=== PATIENT | male | born 1975 | race African-American/Black ===

== ENCOUNTER 2016-06-11 12:46 | Emergency (ER) | payer OTHER ==
[2016-06-11 13:34] LABS: BASOPHIL 0.3 % (0-2); EOSINOPHIL 1.9 % (0-5); HCT 46.5 % (42.0-52.0); HGB 16.1 g/dl (13.2-18.0); LYMPHOCYTE 23.4 % (15-48); MCH 31.6 pg (25.0-31.0); MCHC 34.6 g/dL (32.0-36.0); MCV 91.2 fL (78.0-100.0); MONOCYTE 8.3 % (0-12); NEUTROPHIL 66.1 % (41-80); PLT 254 K/uL (150-400); RDW 13.1 % (11.5-14.0); WBC 7.4 K/uL (4.0-10.5)
[2016-06-11 13:44] LABS: ALCOHOL (ETOH) MEDICAL NONE DETECTED; BILIRUBIN - TOTAL 0.6 mg/dL (0.1-1.0); GLOBULIN (CALCULATION) 2.4 g/dL (2.2-4.2); POTASSIUM 3.2 mmol/L (3.5-5.1); SALICYLATE < 6 ug/mL (0-300); TOTAL PROTEIN 7.4 g/dL (6.4-8.3)
[2016-06-11 13:57] LABS: ACETAMINOPHEN (TYLENOL) < 5.0 ug/mL (10.0-30.0)
[2016-06-11 14:13] LABS: BILIRUBIN NEGATIVE (NEGATIVE); BLOOD NEGATIVE Ery/uL (NEGATIVE); CLARITY CLEAR (CLEAR); COLOR YELLOW (YELLOW); GLUCOSE (U) NORMAL (NORMAL); KETONE (U) NEGATIVE (NEGATIVE); LEUKOCYTES NEGATIVE Leu/uL (NEGATIVE); NITRITE NEGATIVE (NEGATIVE); PROTEIN NEGATIVE (NEGATIVE); UROBILINOGEN 0.2 mg/dL (0.2-1.0)
[2016-06-11 14:31] LABS: AMPHETAMINES NEGATIVE (NEGATIVE); BARBITURATES NEGATIVE (NEGATIVE); BENZODIAZEPINES NEGATIVE (NEGATIVE); COCAINE NEGATIVE (NEGATIVE); MARIJUANA (THC) NEGATIVE (NEGATIVE); METHADONE NEGATIVE (NEGATIVE); TRICYCLIC ANTIDEPRESSANT NEGATIVE (NEGATIVE)
== END 2016-06-11 16:01 | disposition home or self-care (01) ==
LOC: FER 12:46
PROVIDERS: Emergency Medicine
DX: G40.909 Epilepsy, unspecified, not intractable, without status epilepticus (principal); Z79.899 Other long term (current) drug therapy
CPT/HCPCS: 36415; 71020; 80053; 80305; 81003; 85025; 99284; G0480

== ENCOUNTER 2016-08-20 00:04 | Emergency (ER) | payer OTHER ==
[2016-08-20 01:14] LABS: BASOPHIL 0.2 % (0-2); EOSINOPHIL 2.4 % (0-5); HCT 43.3 % (42.0-52.0); HGB 14.9 g/dl (13.2-18.0); LYMPHOCYTE 31.1 % (15-48); MCHC 34.4 g/dL (32.0-36.0); MCV 92.9 fL (78.0-100.0); MONOCYTE 6.3 % (0-12); MPV 9.3 fL (6.0-9.5); PLT 214 K/uL (150-400); RBC 4.66 M/uL (4.70-6.00); RDW 13.8 % (11.5-14.0); WBC 6.2 K/uL (4.0-10.5)
[2016-08-20 01:32] LABS: ALBUMIN 4.9 g/dL (3.5-5.0); BILIRUBIN - TOTAL 0.2 mg/dL (0.1-1.0); GLOBULIN (CALCULATION) 2.3 g/dL (2.2-4.2); POTASSIUM 3.5 mmol/L (3.5-5.1); TOTAL PROTEIN 7.2 g/dL (6.4-8.3)
== END 2016-08-20 02:38 | disposition home or self-care (01) ==
LOC: FER 00:04
PROVIDERS: Emergency Medicine Emergency Medical Services
DX: G40.409 Other generalized epilepsy and epileptic syndromes, not intractable, without status epilepticus (principal); G43.109 Migraine with aura, not intractable, without status migrainosus; H02.402 Unspecified ptosis of left eyelid; J45.909 Unspecified asthma, uncomplicated; F17.210 Nicotine dependence, cigarettes, uncomplicated
CPT/HCPCS: 36415; 80053; 85025; J1885

== ENCOUNTER 2016-12-18 00:03 | Emergency (ER) | payer OTHER ==
[2016-12-18 00:39] LABS: BASOPHIL 0.1 % (0-2); EOSINOPHIL 2.2 % (0-5); HCT 41.4 % (42.0-52.0); HGB 14.3 g/dl (13.2-18.0); MCH 32.9 pg (25.0-31.0); MCHC 34.5 g/dL (32.0-36.0); MCV 95.2 fL (78.0-100.0); MPV 9.6 fL (6.0-9.5); NEUTROPHIL 60.7 % (41-80); PLT 243 K/uL (150-400); RBC 4.35 M/uL (4.70-6.00); RDW 12.9 % (11.5-14.0); WBC 7.8 K/uL (4.0-10.5)
[2016-12-18 00:55] LABS: ALBUMIN 4.5 g/dL (3.5-5.0); BILIRUBIN - TOTAL 0.2 mg/dL (0.1-1.0); CREATININE 1.1 mg/dL (0.7-1.2); GLOBULIN (CALCULATION) 2.6 g/dL (2.2-4.2); POTASSIUM 3.2 mmol/L (3.5-5.1); TOTAL PROTEIN 7.1 g/dL (6.4-8.3)
[2016-12-18 00:57] LABS: TROPONIN T < 0.010 ng/mL
== END 2016-12-18 01:58 | disposition home or self-care (01) ==
LOC: FER 00:03
PROVIDERS: Emergency Medicine Emergency Medical Services
DX: R07.9 Chest pain, unspecified (principal); I10 Essential (primary) hypertension; J45.909 Unspecified asthma, uncomplicated; F17.200 Nicotine dependence, unspecified, uncomplicated; Z91.041 Radiographic dye allergy status; Z79.899 Other long term (current) drug therapy
CPT/HCPCS: 36415; 71010; 80053; 82550; 82553; 84484; 85025; 85379; 93005; C9113; J2930

== ENCOUNTER 2020-05-27 13:55 | Emergency (ER) | payer OTHER ==
[~2020-05-27 13:55] MED LIST: FIORICET1 EACH PO; IMITREX100 MG PO; K-DUR20 MEQ PO; KEPPRA500 MG PO; LASIX20 MG PO; NAPROXEN500 MG PO; POTASSIUM20 MEQ/11 PO; TOPAMAX200 MG PO; TOPIRAMATE100 MG PO
[2020-05-27 15:15] LABS: BASOPHIL 0.3 % (0-2); EOSINOPHIL 1.4 % (0-5); HCT 41.7 % (42.0-52.0); HGB 14.1 g/dl (13.2-18.0); LYMPHOCYTE 24.6 % (15-48); MCH 32.3 pg (25.0-31.0); MCHC 33.8 g/dL (32.0-36.0); MCV 95.4 fL (78.0-100.0); MONOCYTE 7.6 % (0-12); MPV 9.5 fL (6.0-9.5); NEUTROPHIL 65.8 % (41-80); NRBC 0; PLT 221 K/uL (150-400); RBC 4.37 M/uL (4.70-6.00); RDW 12.5 % (11.5-14.0); WBC 5.9 K/uL (4.0-10.5)
[2020-05-27 15:17] LABS: BILIRUBIN NEGATIVE (NEGATIVE); BLOOD NEGATIVE Ery/uL (NEGATIVE); CLARITY CLEAR (CLEAR); COLOR YELLOW (YELLOW); GLUCOSE (U) NORMAL (NORMAL); LEUKOCYTES NEGATIVE Leu/uL (NEGATIVE); NITRITE NEGATIVE (NEGATIVE); PROTEIN NEGATIVE (NEGATIVE); UROBILINOGEN 0.2 mg/dL (0.2-1.0)
[2020-05-27 15:28] LABS: ALBUMIN 3.7 g/dL (3.4-5.0); ALKALINE PHOSHATASE 53 U/L (46-116); ALT 27 U/L (16-63); AST 15 U/L (15-37); BILIRUBIN - TOTAL 0.3 mg/dL (0.2-1.0); BUN 14 mg/dL (7-18); BUN/CREAT RATIO (CALC) 14.1 RATIO; CHLORIDE 103 mmol/L (98-107); CO2 (BICARBONATE) 25 mmol/L (21-32); CREATININE 0.99 mg/dL (0.67-1.17); GLUCOSE 86 mg/dL (74-106); POTASSIUM 3.2 mmol/L (3.5-5.1); TOTAL PROTEIN 6.7 g/dL (6.4-8.2)
[2020-05-27 15:29] LABS: AMPHETAMINES NEGATIVE (NEGATIVE); BARBITURATES NEGATIVE (NEGATIVE); ECSTASY (MDMA) NEGATIVE (NEGATIVE); MARIJUANA (THC) NEGATIVE (NEGATIVE); METHADONE NEGATIVE (NEGATIVE); OPIATES NEGATIVE (NEGATIVE); OXYCODONE NEGATIVE (NEGATIVE)
[2020-05-27 15:34] LABS: LACTIC ACID 0.6 mmol/L (0.4-1.9)
== END 2020-05-27 16:27 | disposition home or self-care (01) ==
LOC: FER 13:55
PROVIDERS: Emergency Medicine
DX: G40.909 Epilepsy, unspecified, not intractable, without status epilepticus (principal); Z79.899 Other long term (current) drug therapy; Z87.891 Personal history of nicotine dependence; Z91.048 Other nonmedicinal substance allergy status
CPT/HCPCS: 36415; 70450; 71045; 80053; 80305; 81003; 83605; 85025; G0480; J1953; J2060; J7030

== ENCOUNTER 2020-06-11 17:22 | Emergency (ER) | payer OTHER ==
[2020-06-11 18:20] LABS: BASOPHIL 0.5 % (0-2); EOSINOPHIL 3.2 % (0-5); HCT 44.9 % (42.0-52.0); HGB 15.1 g/dl (13.2-18.0); MCH 31.9 pg (25.0-31.0); MCHC 33.6 g/dL (32.0-36.0); MCV 94.7 fL (78.0-100.0); MONOCYTE 10.5 % (0-12); MPV 9.6 fL (6.0-9.5); NEUTROPHIL 56.5 % (41-80); NRBC 0; PLT 257 K/uL (150-400); RBC 4.74 M/uL (4.70-6.00); WBC 6.6 K/uL (4.0-10.5)
[2020-06-11 18:32] LABS: ALBUMIN 4.2 g/dL (3.4-5.0); BILIRUBIN - TOTAL 0.3 mg/dL (0.2-1.0); BUN/CREAT RATIO (CALC) 13.9 RATIO; CREATININE 1.08 mg/dL (0.67-1.17); GLOBULIN (CALCULATION) 3.3 g/dL; POTASSIUM 3.2 mmol/L (3.5-5.1); TOTAL PROTEIN 7.5 g/dL (6.4-8.2)
[2020-06-11 18:48] LABS: BILIRUBIN NEGATIVE (NEGATIVE); BLOOD NEGATIVE Ery/uL (NEGATIVE); CLARITY CLEAR (CLEAR); COLOR YELLOW (YELLOW); GLUCOSE (U) NORMAL (NORMAL); LEUKOCYTES NEGATIVE Leu/uL (NEGATIVE); NITRITE NEGATIVE (NEGATIVE); PROTEIN NEGATIVE (NEGATIVE); UROBILINOGEN 0.2 mg/dL (0.2-1.0); pH 7.5 (5.0-9.0)
[2020-06-11 18:56] LABS: AMPHETAMINES NEGATIVE (NEGATIVE); BARBITURATES NEGATIVE (NEGATIVE); ECSTASY (MDMA) NEGATIVE (NEGATIVE); MARIJUANA (THC) NEGATIVE (NEGATIVE); METHADONE NEGATIVE (NEGATIVE); OPIATES NEGATIVE (NEGATIVE); OXYCODONE NEGATIVE (NEGATIVE)
== END 2020-06-11 19:26 | disposition home or self-care (01) ==
LOC: FER 17:22
PROVIDERS: Emergency Medicine
DX: G40.909 Epilepsy, unspecified, not intractable, without status epilepticus (principal); Z79.899 Other long term (current) drug therapy; Z91.041 Radiographic dye allergy status
CPT/HCPCS: 36415; 71045; 80053; 80305; 81003; 85025; J2060

== ENCOUNTER 2020-06-28 16:28 | Emergency (ER) | payer OTHER ==
[2020-06-28 16:57] LABS: BASOPHIL 0.5 % (0-2); EOSINOPHIL 2.5 % (0-5); HCT 42.3 % (42.0-52.0); HGB 14.5 g/dl (13.2-18.0); LYMPHOCYTE 30.6 % (15-48); MCH 32.1 pg (25.0-31.0); MCHC 34.3 g/dL (32.0-36.0); MCV 93.6 fL (78.0-100.0); MONOCYTE 8.3 % (0-12); MPV 9.7 fL (6.0-9.5); NEUTROPHIL 57.8 % (41-80); NRBC 0; PLT 235 K/uL (150-400); RBC 4.52 M/uL (4.70-6.00); RDW 12.2 % (11.5-14.0); WBC 7.6 K/uL (4.0-10.5)
[2020-06-28 17:06] LABS: ALBUMIN 4.3 g/dL (3.4-5.0); BILIRUBIN - TOTAL 0.3 mg/dL (0.2-1.0); BUN/CREAT RATIO (CALC) 13.2 RATIO; CREATININE 1.14 mg/dL (0.67-1.17); POTASSIUM 3.2 mmol/L (3.5-5.1); TOTAL PROTEIN 7.3 g/dL (6.4-8.2)
[2020-06-28 17:49] LABS: BILIRUBIN NEGATIVE (NEGATIVE); BLOOD NEGATIVE Ery/uL (NEGATIVE); CLARITY CLEAR (CLEAR); COLOR YELLOW (YELLOW); GLUCOSE (U) NORMAL (NORMAL); LEUKOCYTES NEGATIVE Leu/uL (NEGATIVE); NITRITE NEGATIVE (NEGATIVE); PROTEIN NEGATIVE (NEGATIVE); UROBILINOGEN 0.2 mg/dL (0.2-1.0); pH 7.5 (5.0-9.0)
[2020-06-28 17:52] LABS: AMPHETAMINES NEGATIVE (NEGATIVE); BARBITURATES NEGATIVE (NEGATIVE); ECSTASY (MDMA) NEGATIVE (NEGATIVE); MARIJUANA (THC) NEGATIVE (NEGATIVE); METHADONE NEGATIVE (NEGATIVE); OPIATES POSITIVE (NEGATIVE); OXYCODONE NEGATIVE (NEGATIVE)
== END 2020-06-28 18:52 | disposition home or self-care (01) ==
LOC: FER 16:28
PROVIDERS: Nurse Practitioner Family
DX: G40.909 Epilepsy, unspecified, not intractable, without status epilepticus (principal); E87.6 Hypokalemia; J45.909 Unspecified asthma, uncomplicated; Z87.891 Personal history of nicotine dependence; Z88.8 Allergy status to other drugs, medicaments and biological substances
CPT/HCPCS: 36415; 71045; 80053; 80305; 81003; 85025

== ENCOUNTER 2020-08-16 11:53 | Emergency (ER) | payer OTHER ==
[2020-08-16 12:09] LABS: BASOPHIL 0.3 % (0-2); HCT 44.4 % (42.0-52.0); HGB 14.9 g/dl (13.2-18.0); LYMPHOCYTE 25.3 % (15-48); MCH 31.8 pg (25.0-31.0); MCHC 33.6 g/dL (32.0-36.0); MCV 94.9 fL (78.0-100.0); MONOCYTE 9.2 % (0-12); MPV 9.3 fL (6.0-9.5); NRBC 0; PLT 236 K/uL (150-400); RBC 4.68 M/uL (4.70-6.00); RDW 12.5 % (11.5-14.0); WBC 6.1 K/uL (4.0-10.5)
[2020-08-16 12:34] LABS: ALBUMIN 4.1 g/dL (3.4-5.0); BILIRUBIN - TOTAL 0.4 mg/dL (0.2-1.0); BUN/CREAT RATIO (CALC) 8.8 RATIO; CREATININE 1.14 mg/dL (0.67-1.17); GLOBULIN (CALCULATION) 3.3 g/dL; POTASSIUM 3.9 mmol/L (3.5-5.1); TOTAL PROTEIN 7.4 g/dL (6.4-8.2)
[2020-08-16] MEDS ORDERED: BENTYL10 MG PO (14:16)
== END 2020-08-16 14:28 | disposition home or self-care (01) ==
LOC: FER 11:53
PROVIDERS: Emergency Medicine
DX: G40.909 Epilepsy, unspecified, not intractable, without status epilepticus (principal); G89.29 Other chronic pain; R10.9 Unspecified abdominal pain; Z88.8 Allergy status to other drugs, medicaments and biological substances
CPT/HCPCS: 36415; 80053; 85025; Q9967

== ENCOUNTER 2020-08-19 12:35 | Emergency (ER) | payer OTHER ==
[~2020-08-19 12:35] MED LIST changes: +BENTYL10 MG PO
[2020-08-19 13:04] LABS: BASOPHIL 0.5 % (0-2); EOSINOPHIL 2.1 % (0-5); HCT 43.7 % (42.0-52.0); HGB 15.1 g/dl (13.2-18.0); LYMPHOCYTE 33.6 % (15-48); MCH 32.3 pg (25.0-31.0); MCHC 34.6 g/dL (32.0-36.0); MCV 93.4 fL (78.0-100.0); MONOCYTE 10.1 % (0-12); MPV 9.8 fL (6.0-9.5); NEUTROPHIL 53.5 % (41-80); NRBC 0; PLT 244 K/uL (150-400); RBC 4.68 M/uL (4.70-6.00); RDW 12.2 % (11.5-14.0); WBC 6.5 K/uL (4.0-10.5)
[2020-08-19 13:18] LABS: CREATININE 1.09 mg/dL (0.67-1.17); POTASSIUM 3.5 mmol/L (3.5-5.1)
== END 2020-08-19 14:55 | disposition home or self-care (01) ==
LOC: FER 12:35
PROVIDERS: Emergency Medicine
DX: G40.909 Epilepsy, unspecified, not intractable, without status epilepticus (principal); G43.909 Migraine, unspecified, not intractable, without status migrainosus; Z87.891 Personal history of nicotine dependence
CPT/HCPCS: 36415; 80048; 85025; 96372; J0780; J1885; J3030

== ENCOUNTER 2020-08-29 12:33 | Emergency (ER) | payer OTHER ==
[2020-08-29 13:23] LABS: BASOPHIL 0.6 % (0-2); EOSINOPHIL 1.9 % (0-5); HGB 14.7 g/dl (13.2-18.0); LYMPHOCYTE 27.2 % (15-48); MCH 32.1 pg (25.0-31.0); MCV 91.7 fL (78.0-100.0); MONOCYTE 9.5 % (0-12); NEUTROPHIL 60.5 % (41-80); NRBC 0; PLT 236 K/uL (150-400); RBC 4.58 M/uL (4.70-6.00); RDW 12.4 % (11.5-14.0); WBC 7.2 K/uL (4.0-10.5)
[2020-08-29 13:36] LABS: ALBUMIN 4.3 g/dL (3.4-5.0); BILIRUBIN - TOTAL 0.5 mg/dL (0.2-1.0); BUN/CREAT RATIO (CALC) 10.3 RATIO; CREATININE 1.26 mg/dL (0.67-1.17); GLOBULIN (CALCULATION) 3.3 g/dL; MAGNESIUM 2.2 mg/dL (1.8-2.4); PHOSPHORUS 2.3 mg/dL (2.6-4.7); POTASSIUM 3.8 mmol/L (3.5-5.1); TOTAL PROTEIN 7.6 g/dL (6.4-8.2)
== END 2020-08-29 14:50 | disposition home or self-care (01) ==
LOC: FER 12:33
PROVIDERS: Emergency Medicine
DX: G40.409 Other generalized epilepsy and epileptic syndromes, not intractable, without status epilepticus (principal); Z88.8 Allergy status to other drugs, medicaments and biological substances
CPT/HCPCS: 36415; 80053; 83735; 84100; 85025; J2060; J2250; J7030

== ENCOUNTER 2020-09-22 13:19 | Emergency (ER) | payer OTHER ==
[2020-09-22 14:02] LABS: BASOPHIL 0.5 % (0-2); BILIRUBIN NEGATIVE (NEGATIVE); BLOOD NEGATIVE Ery/uL (NEGATIVE); CLARITY CLEAR (CLEAR); COLOR YELLOW (YELLOW); EOSINOPHIL 1.7 % (0-5); GLUCOSE (U) NORMAL (NORMAL); HCT 41.5 % (42.0-52.0); HGB 14.1 g/dl (13.2-18.0); LEUKOCYTES NEGATIVE Leu/uL (NEGATIVE); MCH 31.9 pg (25.0-31.0); MCV 93.9 fL (78.0-100.0); MONOCYTE 5.9 % (0-12); MPV 9.5 fL (6.0-9.5); NEUTROPHIL 70.6 % (41-80); NITRITE NEGATIVE (NEGATIVE); NRBC 0; PLT 247 K/uL (150-400); PROTEIN NEGATIVE (NEGATIVE); RBC 4.42 M/uL (4.70-6.00); RDW 12.3 % (11.5-14.0); UROBILINOGEN 0.2 mg/dL (0.2-1.0); WBC 6.4 K/uL (4.0-10.5); pH 7.5 (5.0-9.0)
[2020-09-22 14:39] LABS: ALBUMIN 4.1 g/dL (3.4-5.0); BILIRUBIN - TOTAL 0.4 mg/dL (0.2-1.0); CREATININE 0.97 mg/dL (0.67-1.17); GLOBULIN (CALCULATION) 3.2 g/dL; POTASSIUM 3.6 mmol/L (3.5-5.1); TOTAL PROTEIN 7.3 g/dL (6.4-8.2)
[2020-09-22 14:40] LABS: MAGNESIUM 2.2 mg/dL (1.8-2.4)
== END 2020-09-22 16:00 | disposition home or self-care (01) ==
LOC: FER 13:19
PROVIDERS: Emergency Medicine
DX: G40.909 Epilepsy, unspecified, not intractable, without status epilepticus (principal); Z91.048 Other nonmedicinal substance allergy status
CPT/HCPCS: 36415; 80053; 81003; 82550; 83735; 85025; J2060

== ENCOUNTER 2020-10-03 13:10 | Emergency (ER) | payer OTHER | END 2020-10-03 15:43 | disposition home or self-care (01) | LOC: FER 13:10 | DX: G40.909 Epilepsy, unspecified, not intractable, without status epilepticus (principal); Z88.8 Allergy status to other drugs, medicaments and biological substances | CPT/HCPCS: J2060 ==

== ENCOUNTER 2020-10-12 12:31 | Emergency (ER) | payer OTHER ==
[2020-10-12 14:27] LABS: BASOPHIL 0.6 % (0-2); EOSINOPHIL 3.5 % (0-5); HCT 44.3 % (42.0-52.0); LYMPHOCYTE 24.2 % (15-48); MCH 31.6 pg (25.0-31.0); MCHC 33.9 g/dL (32.0-36.0); MCV 93.5 fL (78.0-100.0); MONOCYTE 9.7 % (0-12); NEUTROPHIL 61.7 % (41-80); NRBC 0; PLT 239 K/uL (150-400); RBC 4.74 M/uL (4.70-6.00); RDW 12.3 % (11.5-14.0); WBC 6.9 K/uL (4.0-10.5)
[2020-10-12 14:34] LABS: ALBUMIN 4.2 g/dL (3.4-5.0); BILIRUBIN - TOTAL 0.4 mg/dL (0.2-1.0); BUN/CREAT RATIO (CALC) 11.8 RATIO; CREATININE 1.1 mg/dL (0.67-1.17); GLOBULIN (CALCULATION) 3.5 g/dL; POTASSIUM 4.1 mmol/L (3.5-5.1); TOTAL PROTEIN 7.7 g/dL (6.4-8.2)
[2020-10-12 14:51] LABS: BILIRUBIN NEGATIVE (NEGATIVE); BLOOD NEGATIVE Ery/uL (NEGATIVE); CLARITY CLEAR (CLEAR); COLOR YELLOW (YELLOW); GLUCOSE (U) NORMAL (NORMAL); LEUKOCYTES NEGATIVE Leu/uL (NEGATIVE); NITRITE NEGATIVE (NEGATIVE); PROTEIN NEGATIVE (NEGATIVE); SPECIFIC GRAVITY 1.025 (1.001-1.030); UROBILINOGEN 0.2 mg/dL (0.2-1.0)
[2020-10-12] MEDS ORDERED: BENTYL10 MG PO (15:22)
== END 2020-10-12 15:45 | disposition home or self-care (01) ==
LOC: FER 12:31
PROVIDERS: Emergency Medicine
DX: G40.909 Epilepsy, unspecified, not intractable, without status epilepticus (principal); G89.29 Other chronic pain; R10.9 Unspecified abdominal pain; Z91.041 Radiographic dye allergy status
CPT/HCPCS: 36415; 80053; 81003; 83690; 85025; J2060

== ENCOUNTER 2020-11-18 14:23 | Emergency (ER) | payer OTHER | END 2020-11-18 15:19 | disposition home or self-care (01) | LOC: FER 14:23 | DX: G40.909 Epilepsy, unspecified, not intractable, without status epilepticus (principal); Z91.041 Radiographic dye allergy status; Z87.891 Personal history of nicotine dependence | CPT/HCPCS: 99284 ==

== ENCOUNTER 2020-11-20 13:50 | Emergency (ER) | payer OTHER ==
[2020-11-20 14:48] LABS: BASOPHIL 0.5 % (0-2); EOSINOPHIL 0.9 % (0-5); HCT 42.6 % (42.0-52.0); HGB 14.1 g/dl (13.2-18.0); LYMPHOCYTE 18.2 % (15-48); MCH 30.8 pg (25.0-31.0); MCHC 33.1 g/dL (32.0-36.0); MONOCYTE 7.3 % (0-12); MPV 9.6 fL (6.0-9.5); NEUTROPHIL 72.9 % (41-80); NRBC 0; PLT 218 K/uL (150-400); RBC 4.58 M/uL (4.70-6.00); RDW 12.4 % (11.5-14.0); WBC 5.8 K/uL (4.0-10.5)
[2020-11-20 15:08] LABS: ALBUMIN 3.9 g/dL (3.4-5.0); BILIRUBIN - TOTAL 0.3 mg/dL (0.2-1.0); CREATININE 1.09 mg/dL (0.67-1.17); POTASSIUM 3.3 mmol/L (3.5-5.1); TOTAL PROTEIN 6.9 g/dL (6.4-8.2)
== END 2020-11-20 15:48 | disposition home or self-care (01) ==
LOC: FER 13:50
PROVIDERS: Internal Medicine
DX: G40.909 Epilepsy, unspecified, not intractable, without status epilepticus (principal); E87.6 Hypokalemia; Z91.041 Radiographic dye allergy status
CPT/HCPCS: 36415; 80053; 85025; 99284

== ENCOUNTER 2020-12-19 14:39 | Emergency (ER) | payer OTHER ==
[2020-12-19 15:22] LABS: BASOPHIL 0.4 % (0-2); EOSINOPHIL 1.8 % (0-5); HCT 41.3 % (42.0-52.0); HGB 13.8 g/dl (13.2-18.0); LYMPHOCYTE 15.8 % (15-48); MCH 30.9 pg (25.0-31.0); MCHC 33.4 g/dL (32.0-36.0); MCV 92.6 fL (78.0-100.0); MONOCYTE 6.4 % (0-12); MPV 9.7 fL (6.0-9.5); NEUTROPHIL 75.2 % (41-80); NRBC 0; PLT 217 K/uL (150-400); RBC 4.46 M/uL (4.70-6.00); RDW 12.6 % (11.5-14.0); WBC 7.4 K/uL (4.0-10.5)
[2020-12-19 16:01] LABS: ALBUMIN 3.9 g/dL (3.4-5.0); BILIRUBIN - TOTAL 0.4 mg/dL (0.2-1.0); BUN/CREAT RATIO (CALC) 9.7 RATIO; CREATININE 1.13 mg/dL (0.67-1.17); GLOBULIN (CALCULATION) 2.7 g/dL; POTASSIUM 3.3 mmol/L (3.5-5.1); TOTAL PROTEIN 6.6 g/dL (6.4-8.2)
[2020-12-19] MEDS ORDERED: KEPPRA250 MG PO (18:33)
== END 2020-12-19 18:51 | disposition home or self-care (01) ==
LOC: FER 14:39
PROVIDERS: Internal Medicine
DX: G40.409 Other generalized epilepsy and epileptic syndromes, not intractable, without status epilepticus (principal); I10 Essential (primary) hypertension; Z91.041 Radiographic dye allergy status
CPT/HCPCS: 36415; 80053; 84443; 84484; 85025; 93005; J1885; J1953; J2060; J7120

== ENCOUNTER 2021-01-06 15:56 | Emergency (ER) | payer OTHER ==
[~2021-01-06 15:56] MED LIST changes: +KEPPRA250 MG PO
[2021-01-06 17:02] LABS: BASOPHIL 0.3 % (0-2); EOSINOPHIL 1.9 % (0-5); HCT 43.7 % (42.0-52.0); HGB 15.1 g/dl (13.2-18.0); LYMPHOCYTE 25.3 % (15-48); MCH 31.7 pg (25.0-31.0); MCHC 34.6 g/dL (32.0-36.0); MCV 91.8 fL (78.0-100.0); MONOCYTE 9.1 % (0-12); NEUTROPHIL 63.1 % (41-80); NRBC 0; PLT 272 K/uL (150-400); RBC 4.76 M/uL (4.70-6.00); RDW 12.4 % (11.5-14.0); WBC 5.8 K/uL (4.0-10.5)
[2021-01-06 17:07] LABS: POTASSIUM 3.3 mmol/L (3.5-5.1)
== END 2021-01-06 18:07 | disposition home or self-care (01) ==
LOC: FER 15:56
PROVIDERS: Nurse Practitioner Family
DX: G40.909 Epilepsy, unspecified, not intractable, without status epilepticus (principal); Z91.041 Radiographic dye allergy status
CPT/HCPCS: 36415; 80048; 85025; J1953; J2060

== ENCOUNTER 2021-01-12 15:01 | Emergency (ER) | payer OTHER ==
[~2021-01-12] VITALS: Ht 170.2 cm; Wt 72.6 kg
== END 2021-01-12 18:05 | disposition home or self-care (01) ==
LOC: FER 15:01
DX: G40.909 Epilepsy, unspecified, not intractable, without status epilepticus (principal); Z91.041 Radiographic dye allergy status
CPT/HCPCS: J1953; J2060

== ENCOUNTER 2021-02-07 14:00 | Emergency (ER) | payer OTHER ==
[2021-02-07 15:02] LABS: BASOPHIL 0.4 % (0-2); EOSINOPHIL 2.4 % (0-5); LYMPHOCYTE 24.9 % (15-48); MCHC 33.3 g/dL (32.0-36.0); MCV 92.9 fL (78.0-100.0); MPV 9.7 fL (6.0-9.5); NEUTROPHIL 65.3 % (41-80); NRBC 0; PLT 214 K/uL (150-400); RBC 4.52 M/uL (4.70-6.00); RDW 12.9 % (11.5-14.0); WBC 5.3 K/uL (4.0-10.5)
[2021-02-07 15:08] LABS: BILIRUBIN NEGATIVE (NEGATIVE); BLOOD NEGATIVE Ery/uL (NEGATIVE); CLARITY CLEAR (CLEAR); COLOR YELLOW (YELLOW); GLUCOSE (U) NORMAL (NORMAL); LEUKOCYTES NEGATIVE Leu/uL (NEGATIVE); NITRITE NEGATIVE (NEGATIVE); PROTEIN NEGATIVE (NEGATIVE); SPECIFIC GRAVITY 1.015 (1.001-1.030); UROBILINOGEN 0.2 mg/dL (0.2-1.0); pH 7.5 (5.0-9.0)
[2021-02-07 15:19] LABS: BUN/CREAT RATIO (CALC) 8.8 RATIO; CREATININE 1.02 mg/dL (0.67-1.17); POTASSIUM 3.1 mmol/L (3.5-5.1)
== END 2021-02-07 16:52 | disposition home or self-care (01) ==
LOC: FER 14:00
PROVIDERS: Emergency Medicine
DX: R56.9 Unspecified convulsions (principal); E87.6 Hypokalemia; Z91.041 Radiographic dye allergy status
CPT/HCPCS: 36415; 80048; 81003; 85025; 99285; J7030

== ENCOUNTER 2021-03-05 13:26 | Emergency (ER) | payer OTHER ==
[2021-03-05 13:50] LABS: BASOPHIL 0.4 % (0-2); EOSINOPHIL 1.6 % (0-5); HGB 15.3 g/dl (13.2-18.0); LYMPHOCYTE 21.3 % (15-48); MCH 31.8 pg (25.0-31.0); MCV 93.6 fL (78.0-100.0); MONOCYTE 6.5 % (0-12); MPV 9.8 fL (6.0-9.5); NEUTROPHIL 69.8 % (41-80); NRBC 0; PLT 235 K/uL (150-400); RBC 4.81 M/uL (4.70-6.00); RDW 12.7 % (11.5-14.0); WBC 5.5 K/uL (4.0-10.5)
[2021-03-05 14:03] LABS: BUN/CREAT RATIO (CALC) 13.4 RATIO; CREATININE 1.12 mg/dL (0.67-1.17); POTASSIUM 3.4 mmol/L (3.5-5.1)
== END 2021-03-05 15:42 | disposition home or self-care (01) ==
LOC: FER 13:26
PROVIDERS: Nurse Practitioner Family
DX: G40.909 Epilepsy, unspecified, not intractable, without status epilepticus (principal); J45.909 Unspecified asthma, uncomplicated; Z91.041 Radiographic dye allergy status; Z79.899 Other long term (current) drug therapy
CPT/HCPCS: 36415; 80048; 85025; J1953; J2060; J7030

== ENCOUNTER 2021-03-29 14:38 | Emergency (ER) | payer OTHER ==
[2021-03-29 15:20] LABS: BASOPHIL 0.2 % (0-2); EOSINOPHIL 1.5 % (0-5); HCT 43.6 % (42.0-52.0); HGB 14.8 g/dl (13.2-18.0); LYMPHOCYTE 24.8 % (15-48); MCH 31.1 pg (25.0-31.0); MCHC 33.9 g/dL (32.0-36.0); MCV 91.6 fL (78.0-100.0); MPV 9.9 fL (6.0-9.5); NEUTROPHIL 66.3 % (41-80); NRBC 0; PLT 230 K/uL (150-400); RBC 4.76 M/uL (4.70-6.00); RDW 12.3 % (11.5-14.0); WBC 6.1 K/uL (4.0-10.5)
== END 2021-03-29 17:15 | disposition home or self-care (01) ==
LOC: FER 14:38
PROVIDERS: Physician Assistant
DX: G40.909 Epilepsy, unspecified, not intractable, without status epilepticus (principal); I10 Essential (primary) hypertension; Z91.041 Radiographic dye allergy status; Z79.899 Other long term (current) drug therapy
CPT/HCPCS: 36415; 85025; 99284

== ENCOUNTER 2021-05-08 15:03 | Emergency (ER) | payer OTHER ==
[2021-05-08 17:17] LABS: HCT 42.8 % (42.0-52.0); HGB 14.5 g/dL (13.2-18.0)
== END 2021-05-08 18:31 | disposition home or self-care (01) ==
LOC: FER 15:03
PROVIDERS: Emergency Medicine
DX: G40.909 Epilepsy, unspecified, not intractable, without status epilepticus (principal); I50.9 Heart failure, unspecified; Z91.041 Radiographic dye allergy status; Z79.899 Other long term (current) drug therapy
CPT/HCPCS: 36415; 70450; 85014; 85018; J2060

== ENCOUNTER 2021-05-19 15:58 | Emergency (ER) | payer OTHER ==
[2021-05-19] MEDS ORDERED: TOPAMAX100 MG PO (18:13)
== END 2021-05-19 18:25 | disposition home or self-care (01) ==
LOC: FER 15:58
DX: G40.909 Epilepsy, unspecified, not intractable, without status epilepticus (principal); Z79.899 Other long term (current) drug therapy; Z91.041 Radiographic dye allergy status
CPT/HCPCS: J1953

== ENCOUNTER 2021-06-13 13:31 | Emergency (ER) | payer OTHER ==
[~2021-06-13 13:31] MED LIST changes: +TOPAMAX100 MG PO
[2021-06-13 13:57] LABS: BASOPHIL 0.4 % (0-2); EOSINOPHIL 0.7 % (0-5); HGB 15.4 g/dl (13.2-18.0); LYMPHOCYTE 23.6 % (15-48); MCH 30.7 pg (25.0-31.0); MCHC 33.5 g/dL (32.0-36.0); MCV 91.8 fL (78.0-100.0); MPV 8.8 fL (6.0-9.5); NEUTROPHIL 66.1 % (41-80); NRBC 0; PLT 234 K/uL (150-400); RBC 5.01 M/uL (4.70-6.00); RDW 12.5 % (11.5-14.0); WBC 5.6 K/uL (4.0-10.5)
[2021-06-13 14:11] LABS: CREATININE 1.14 mg/dL (0.67-1.17); POTASSIUM 3.3 mmol/L (3.5-5.1)
== END 2021-06-13 15:19 | disposition home or self-care (01) ==
LOC: FER 13:31
PROVIDERS: Emergency Medicine
DX: G40.409 Other generalized epilepsy and epileptic syndromes, not intractable, without status epilepticus (principal); Z91.041 Radiographic dye allergy status
CPT/HCPCS: 36415; 80048; 80201; 85025; J2060

== ENCOUNTER 2021-06-27 16:00 | Emergency (ER) | payer OTHER ==
[2021-06-27 17:51] LABS: BASOPHIL 0.4 % (0-2); EOSINOPHIL 1.9 % (0-5); HCT 40.8 % (42.0-52.0); HGB 13.5 g/dl (13.2-18.0); MCH 31.2 pg (25.0-31.0); MCHC 33.1 g/dL (32.0-36.0); MCV 94.2 fL (78.0-100.0); MONOCYTE 6.1 % (0-12); MPV 9.4 fL (6.0-9.5); NEUTROPHIL 69.3 % (41-80); NRBC 0; PLT 247 K/uL (150-400); RBC 4.33 M/uL (4.70-6.00); RDW 12.8 % (11.5-14.0); WBC 11.2 K/uL (4.0-10.5)
[2021-06-27 18:09] LABS: POTASSIUM 3.4 mmol/L (3.5-5.1)
== END 2021-06-27 21:30 | disposition home or self-care (01) ==
LOC: FER 16:00
PROVIDERS: Nurse Practitioner Family
DX: G40.909 Epilepsy, unspecified, not intractable, without status epilepticus (principal); I10 Essential (primary) hypertension; Z91.041 Radiographic dye allergy status
CPT/HCPCS: 36415; 80048; 85025; J2060

== ENCOUNTER 2021-07-20 16:41 | Emergency (ER) | payer OTHER ==
[2021-07-20 19:48] LABS: BASOPHIL 0.4 % (0-2); EOSINOPHIL 1.3 % (0-5); HCT 44.1 % (42.0-52.0); HGB 14.5 g/dl (13.2-18.0); MCH 31.1 pg (25.0-31.0); MCHC 32.9 g/dL (32.0-36.0); MCV 94.6 fL (78.0-100.0); MONOCYTE 8.3 % (0-12); MPV 10.4 fL (6.0-9.5); NEUTROPHIL 58.8 % (41-80); NRBC 0; PLT 262 K/uL (150-400); RBC 4.66 M/uL (4.70-6.00); RDW 12.8 % (11.5-14.0); WBC 5.4 K/uL (4.0-10.5)
[2021-07-20 19:58] LABS: BUN/CREAT RATIO (CALC) 9.2 RATIO; CREATININE 1.19 mg/dL (0.67-1.17); POTASSIUM 3.4 mmol/L (3.5-5.1)
== END 2021-07-20 20:35 | disposition home or self-care (01) ==
LOC: FER 16:41
PROVIDERS: Internal Medicine
DX: G40.909 Epilepsy, unspecified, not intractable, without status epilepticus (principal); Z91.048 Other nonmedicinal substance allergy status
CPT/HCPCS: 36415; 80048; 85025; J2250

== ENCOUNTER 2021-08-03 12:56 | Emergency (ER) | payer OTHER ==
[2021-08-03 14:41] LABS: ALBUMIN 4.3 g/dL (3.4-5.0); BILIRUBIN - TOTAL 0.3 mg/dL (0.2-1.0); BUN/CREAT RATIO (CALC) 9.7 RATIO; CREATININE 1.24 mg/dL (0.67-1.17); GLOBULIN (CALCULATION) 3.4 g/dL; POTASSIUM 3.4 mmol/L (3.5-5.1); TOTAL PROTEIN 7.7 g/dL (6.4-8.2)
[2021-08-03 14:50] LABS: BASOPHIL 0.5 % (0-2); EOSINOPHIL 0.9 % (0-5); HCT 46.5 % (42.0-52.0); HGB 15.5 g/dl (13.2-18.0); MCH 31.3 pg (25.0-31.0); MCHC 33.3 g/dL (32.0-36.0); MCV 93.8 fL (78.0-100.0); MONOCYTE 8.2 % (0-12); MPV 9.5 fL (6.0-9.5); NEUTROPHIL 60.4 % (41-80); NRBC 0; PLT 232 K/uL (150-400); RBC 4.96 M/uL (4.70-6.00); RDW 12.4 % (11.5-14.0); WBC 5.9 K/uL (4.0-10.5)
[2021-08-03 16:08] LABS: BILIRUBIN NEGATIVE (NEGATIVE); BLOOD NEGATIVE Ery/uL (NEGATIVE); CLARITY CLEAR (CLEAR); COLOR YELLOW (YELLOW); GLUCOSE (U) NORMAL (NORMAL); LEUKOCYTES NEGATIVE Leu/uL (NEGATIVE); NITRITE NEGATIVE (NEGATIVE); PROTEIN NEGATIVE (NEGATIVE); UROBILINOGEN 0.2 mg/dL (0.2-1.0)
[2021-08-03 16:15] LABS: SQUAMOUS EPITHELIAL CELLS RARE
[2021-08-03] MEDS ORDERED: BENTYL10 MG PO (19:01)
== END 2021-08-03 19:20 | disposition home or self-care (01) ==
LOC: FER 12:56
PROVIDERS: Emergency Medicine
DX: G40.909 Epilepsy, unspecified, not intractable, without status epilepticus (principal); R10.31 Right lower quadrant pain; Z91.041 Radiographic dye allergy status
CPT/HCPCS: 36415; 80053; 81001; 85025; J1953; J7030

== ENCOUNTER 2021-08-20 13:58 | Emergency (ER) | payer OTHER ==
[2021-08-20 14:11] LABS: BASOPHIL 0.3 % (0-2); EOSINOPHIL 0.5 % (0-5); HCT 40.6 % (42.0-52.0); HGB 13.6 g/dl (13.2-18.0); LYMPHOCYTE 26.9 % (15-48); MCH 31.1 pg (25.0-31.0); MCHC 33.5 g/dL (32.0-36.0); MCV 92.9 fL (78.0-100.0); MPV 9.3 fL (6.0-9.5); NEUTROPHIL 64.1 % (41-80); NRBC 0; PLT 269 K/uL (150-400); RBC 4.37 M/uL (4.70-6.00); RDW 12.5 % (11.5-14.0); WBC 5.7 K/uL (4.0-10.5)
[2021-08-20 14:30] LABS: ALBUMIN 4.3 g/dL (3.4-5.0); BILIRUBIN - TOTAL 0.3 mg/dL (0.2-1.0); BUN/CREAT RATIO (CALC) 10.6 RATIO; CREATININE 1.13 mg/dL (0.67-1.17); GLOBULIN (CALCULATION) 2.9 g/dL; MAGNESIUM 2.1 mg/dL (1.8-2.4); PHOSPHORUS 1.6 mg/dL (2.6-4.7); POTASSIUM 3.1 mmol/L (3.5-5.1); TOTAL PROTEIN 7.2 g/dL (6.4-8.2)
== END 2021-08-20 16:25 | disposition home or self-care (01) ==
LOC: FER 13:58
PROVIDERS: Emergency Medicine
DX: G40.909 Epilepsy, unspecified, not intractable, without status epilepticus (principal); Z79.899 Other long term (current) drug therapy; Z91.041 Radiographic dye allergy status
CPT/HCPCS: 36415; 80053; 82550; 83735; 84100; 85025; J1953; J2060; J7030

== ENCOUNTER 2021-09-06 16:32 | Emergency (ER) | payer OTHER ==
[2021-09-06 17:06] LABS: BASOPHIL 0.4 % (0-2); EOSINOPHIL 1.4 % (0-5); HCT 37.7 % (42.0-52.0); HGB 12.6 g/dl (13.2-18.0); LYMPHOCYTE 30.5 % (15-48); MCH 31.1 pg (25.0-31.0); MCHC 33.4 g/dL (32.0-36.0); MCV 93.1 fL (78.0-100.0); MPV 9.1 fL (6.0-9.5); NEUTROPHIL 59.5 % (41-80); NRBC 0; PLT 223 K/uL (150-400); RBC 4.05 M/uL (4.70-6.00); RDW 12.6 % (11.5-14.0)
[2021-09-06 17:35] LABS: BUN/CREAT RATIO (CALC) 12.5 RATIO; CREATININE 1.12 mg/dL (0.67-1.17); POTASSIUM 2.8 mmol/L (3.5-5.1)
== END 2021-09-06 20:00 | disposition home or self-care (01) ==
LOC: FER 16:32
PROVIDERS: Nurse Practitioner Family
DX: G40.909 Epilepsy, unspecified, not intractable, without status epilepticus (principal); Z91.041 Radiographic dye allergy status
CPT/HCPCS: 36415; 80048; 85025; J1953

== ENCOUNTER 2021-10-02 13:07 | Emergency (ER) | payer OTHER ==
[2021-10-02 14:35] LABS: BASOPHIL 0.4 % (0-2); EOSINOPHIL 4.2 % (0-5); HCT 40.3 % (42.0-52.0); HGB 13.3 g/dl (13.2-18.0); LYMPHOCYTE 21.9 % (15-48); MCV 93.9 fL (78.0-100.0); MONOCYTE 12.3 % (0-12); MPV 9.5 fL (6.0-9.5); NEUTROPHIL 60.9 % (41-80); NRBC 0; PLT 263 K/uL (150-400); RBC 4.29 M/uL (4.70-6.00); RDW 12.9 % (11.5-14.0); WBC 7.1 K/uL (4.0-10.5)
[2021-10-02 14:40] LABS: BILIRUBIN NEGATIVE (NEGATIVE); BLOOD NEGATIVE Ery/uL (NEGATIVE); CLARITY CLEAR (CLEAR); COLOR YELLOW (YELLOW); GLUCOSE (U) NORMAL (NORMAL); LEUKOCYTES NEGATIVE Leu/uL (NEGATIVE); NITRITE NEGATIVE (NEGATIVE); PROTEIN NEGATIVE (NEGATIVE); SPECIFIC GRAVITY 1.015 (1.001-1.030); UROBILINOGEN 0.2 mg/dL (0.2-1.0)
[2021-10-02 14:44] LABS: AMPHETAMINES NEGATIVE (NEGATIVE); BARBITURATES NEGATIVE (NEGATIVE); ECSTASY (MDMA) NEGATIVE (NEGATIVE); MARIJUANA (THC) NEGATIVE (NEGATIVE); METHADONE NEGATIVE (NEGATIVE); OPIATES NEGATIVE (NEGATIVE); OXYCODONE NEGATIVE (NEGATIVE)
[2021-10-02 14:56] LABS: BUN/CREAT RATIO (CALC) 11.3 RATIO; CREATININE 1.15 mg/dL (0.67-1.17); POTASSIUM 3.2 mmol/L (3.5-5.1)
[2021-10-02] MEDS ORDERED: K-TAB ER20 MEQ PO (16:08)
== END 2021-10-02 16:44 | disposition home or self-care (01) ==
LOC: FER 13:07
PROVIDERS: Nurse Practitioner Family
DX: G40.909 Epilepsy, unspecified, not intractable, without status epilepticus (principal); E87.6 Hypokalemia; Z87.891 Personal history of nicotine dependence; Z91.041 Radiographic dye allergy status
CPT/HCPCS: 36415; 80048; 80305; 81003; 85025; 99284

== ENCOUNTER 2021-10-18 18:05 | Emergency (ER) | payer OTHER ==
[~2021-10-18 18:05] MED LIST changes: +K-TAB ER20 MEQ PO
[2021-10-18 19:18] LABS: BASOPHIL 0.3 % (0-2); EOSINOPHIL 2.3 % (0-5); HGB 12.9 g/dl (13.2-18.0); LYMPHOCYTE 27.4 % (15-48); MCH 30.5 pg (25.0-31.0); MCHC 32.3 g/dL (32.0-36.0); MCV 94.6 fL (78.0-100.0); MONOCYTE 11.7 % (0-12); MPV 9.2 fL (6.0-9.5); NEUTROPHIL 57.7 % (41-80); NRBC 0; PLT 291 K/uL (150-400); RBC 4.23 M/uL (4.70-6.00); RDW 13.6 % (11.5-14.0); WBC 6.5 K/uL (4.0-10.5)
[2021-10-18 19:18] LABS: BILIRUBIN NEGATIVE (NEGATIVE); BLOOD NEGATIVE Ery/uL (NEGATIVE); CLARITY CLEAR (CLEAR); COLOR YELLOW (YELLOW); GLUCOSE (U) NORMAL (NORMAL); LEUKOCYTES NEGATIVE Leu/uL (NEGATIVE); NITRITE NEGATIVE (NEGATIVE); PROTEIN NEGATIVE (NEGATIVE); SPECIFIC GRAVITY 1.025 (1.001-1.030); UROBILINOGEN 0.2 mg/dL (0.2-1.0); pH 6.5 (5.0-9.0)
[2021-10-18 19:46] LABS: ALBUMIN 3.8 g/dL (3.4-5.0); BILIRUBIN - TOTAL 0.2 mg/dL (0.2-1.0); BUN/CREAT RATIO (CALC) 12.5 RATIO; CREATININE 1.2 mg/dL (0.67-1.17); GLOBULIN (CALCULATION) 3.4 g/dL; POTASSIUM 3.9 mmol/L (3.5-5.1); TOTAL PROTEIN 7.2 g/dL (6.4-8.2)
[2021-10-18] MEDS ORDERED: BENTYL10 MG PO (21:05)
== END 2021-10-18 21:45 | disposition home or self-care (01) ==
LOC: FER 18:05
PROVIDERS: Nurse Practitioner Family
DX: R10.11 Right upper quadrant pain (principal); R19.7 Diarrhea, unspecified; J45.909 Unspecified asthma, uncomplicated; K21.9 Gastro-esophageal reflux disease without esophagitis; G40.909 Epilepsy, unspecified, not intractable, without status epilepticus; Z79.899 Other long term (current) drug therapy; Z91.041 Radiographic dye allergy status; Z87.891 Personal history of nicotine dependence
CPT/HCPCS: 36415; 80053; 81003; 82150; 83690; 85025; J7030; Q9967

== ENCOUNTER 2021-10-24 15:15 | Emergency (ER) | payer OTHER | END 2021-10-24 18:19 | disposition home or self-care (01) | LOC: FER 15:15 | DX: G40.909 Epilepsy, unspecified, not intractable, without status epilepticus (principal); J45.909 Unspecified asthma, uncomplicated | CPT/HCPCS: J1953; J2060 ==

== ENCOUNTER 2021-11-13 14:39 | Emergency (ER) | payer OTHER | END 2021-11-13 19:25 | disposition home or self-care (01) | LOC: FER 14:39 | DX: G40.909 Epilepsy, unspecified, not intractable, without status epilepticus (principal); Z91.041 Radiographic dye allergy status | CPT/HCPCS: J1953 ==

== ENCOUNTER 2021-12-07 12:30 | Emergency (ER) | payer OTHER ==
[2021-12-07 12:56] LABS: BASOPHIL 0.5 % (0-2); EOSINOPHIL 1.5 % (0-5); HCT 40.8 % (42.0-52.0); HGB 13.3 g/dl (13.2-18.0); LYMPHOCYTE 25.1 % (15-48); MCH 30.2 pg (25.0-31.0); MCHC 32.6 g/dL (32.0-36.0); MCV 92.7 fL (78.0-100.0); MONOCYTE 10.9 % (0-12); MPV 9.7 fL (6.0-9.5); NEUTROPHIL 61.7 % (41-80); NRBC 0; PLT 276 K/uL (150-400); RDW 12.2 % (11.5-14.0)
[2021-12-07 13:01] LABS: INR 0.95 (0.9-1.2); PROTHROMBIN TIME 12.4 SECONDS (11.9-13.9); PTT 25.8 SECONDS (24.9-34.6)
[2021-12-07 13:10] LABS: ALBUMIN 4.2 g/dL (3.4-5.0); ALKALINE PHOSHATASE 50 U/L (46-116); ALT 23 U/L (16-63); AST 11 U/L (15-37); BILIRUBIN - TOTAL 0.2 mg/dL (0.2-1.0); BUN 10 mg/dL (7-18); BUN/CREAT RATIO (CALC) 8.8 RATIO; CHLORIDE 104 mmol/L (98-107); CO2 (BICARBONATE) 26 mmol/L (21-32); CREATININE 1.13 mg/dL (0.67-1.17); GLOBULIN (CALCULATION) 3.6 g/dL; GLUCOSE 92 mg/dL (74-106); POTASSIUM 3.6 mmol/L (3.5-5.1); TOTAL PROTEIN 7.8 g/dL (6.4-8.2)
[2021-12-07 13:57] LABS: CORONAVIRUS 2019 SARS-COV-2 NEGATIVE (NEGATIVE); INFLUENZA A NAA NEGATIVE (NEGATIVE)
== END 2021-12-07 14:05 | disposition home or self-care (01) ==
LOC: FER 12:30
PROVIDERS: Emergency Medicine
DX: R07.89 Other chest pain (principal); Z20.822 Contact with and (suspected) exposure to COVID-19; Z91.041 Radiographic dye allergy status
CPT/HCPCS: 36415; 71045; 80053; 84484; 85025; 85610; 85730; 93005; J1885; U0002